=== PATIENT | female | born 2000 | race Caucasian/White ===

== ENCOUNTER 2025-03-09 10:56 | Day surgery (SDC) | payer OTHER ==
[2025-03-09 11:36] VITALS: BMI 20.9
[2025-03-09] MEDS ORDERED: LIDOCAINE HCL/PF 2% SDV 5ML VIAL ONE (11:39)
[2025-03-09 12:28] VITALS: PULSE 67; RESP 18; TEMP 97.6
[2025-03-09 12:33] VITALS: BP 105/57
== END 2025-03-09 13:35 | disposition home or self-care (01) ==
LOC: FASU-ENDO 10:56
PROVIDERS: ATTEND Internal Medicine Gastroenterology
PROC: 0DJD8ZZ Inspection of Lower Intestinal Tract, Via Natural or Artificial Opening Endoscopic (ICD-10-PCS; principal; 2025-03-09 11:55)
DX: K92.1 Melena (principal); K64.1 Second degree hemorrhoids